=== PATIENT | male | born 1965 | race Caucasian/White ===

== ENCOUNTER 2016-09-27 09:43 | Emergency (ER) | payer OTHER ==
[2016-09-27 10:14] VITALS: BP 167/66; PULSE 78; RESP 18; TEMP 98; O2SAT 97
--- NOTE | 2016-09-27 10:56 | UCPHY ---
H & P Time Seen by Provider: 09/27/16 10:48 Patient Type: New HPI/ROS: This patient presents with a chief complaint of congestion, sore throat and productive cough which began 2 days ago. A denies fever, it ear pain or malaise. He has no chest pain no shortness of breath although has felt somewhat wheezy. REVIEW OF SYSTEMS: Constitutional: No fever, no malaise Eyes: No complaints ENT: Sore throat which is improving, nasal congestion and sinus pressure, no ear pain Respiratory: Productive cough, no shortness of breath, questionable wheezing Cardiac: No chest pain Gastrointestinal: Not addressed Genitourinary: Not addressed Musculoskeletal: Achiness initially this is resolved Skin: No rash Neurological: No headache Smoking Status: Never smoked Physical Exam: GENERAL: Well-appearing, well-nourished and in no acute distress. HEAD: Atraumatic, normocephalic. EYES: sclera anicteric, conjunctiva are normal. ENT: TMs normal, nares patent, oropharynx clear without exudates. Moist mucous membranes. NECK: Normal range of motion, supple without lymphadenopathy or JVD. LUNGS: Breath sounds clear to auscultation bilaterally and equal. No wheezes rales or rhonchi. HEART: Regular rate and rhythm EXTREMITIES: Normal range of motion, NEUROLOGICAL: Cranial nerves II through XII grossly intact. Normal speech, normal gait. PSYCH: Normal mood, normal affect. SKIN: Warm, dry, normal turgor, no visible rashes or lesions. Constitutional: Initial Vital Signs Temperature (C) 36.6 C 09/27/16 10:11 Heart Rate 78 09/27/16 10:11 Respiratory Rate 18 09/27/16 10:11 Blood Pressure 167/66 H 09/27/16 10:11 O2 Sat (%) 97 09/27/16 10:11 O2 Delivery Mode Room Air Allergies/Adverse Reactions: No Known Allergies Allergy (Unverified 09/27/16 10:09) Home Medications: Medication Instructions Recorded Alluprinol 09/27/16 Amlodipine Besylate 09/27/16 Lasix 09/27/16 Losartan Potassium 09/27/16 Losartan Potassium 09/27/16 Verapamil 09/27/16 Medical Decision Making Differential Diagnosis: I believe that this patient has a viral illness and that antibiotics are not indicated. I do not believe an x-ray is indicated. - Data Points Laboratory Results: 09/27/16 09/27/16 Unknown 10:30 Group A Strep Screen NEGATIVE (NEGATIVE) Group A Strep DNA Pending Departure - Departure Disposition: Home, Routine, Self-Care Clinical Impression: Viral syndrome Bronchitis, acute Qualifiers: Bronchitis organism: unspecified organism Qualified Code(s): J20.9 - Acute bronchitis, unspecified Condition: Good Instructions: Acute Bronchitis (ED), Upper Respiratory Infection (ED) Additional Instructions: If symptoms have not improved in 5 or 6 days or if they have not resolved in 10 days you should be re-evaluated. Causes for concern would be chest pain, fever or shortness of breath. Activity and diet as tolerated. Adult Pain & Fever Control: We recommend Acetaminophen (Tylenol) and Ibuprofen (Motrin, Advil) for pain and fever control. When fever is high or pain severe, both drugs can be used at the same time, but at different intervals. Please note the time differences. Your dose is: Acetaminophen [650]mg every 4 to 6 hours ibuprofen [600]mg every [6] hours with food OR naproxen Sodium (Aleve) [440]mg every 12 hours. Note: do not take Acetaminophen with Hydrocodone (Vicodin, Lortab) or Oxycodone (Percocet). These medications also contain Acetaminophen. No more than 3000 mg of Acetaminophen should be taken in 24 hours (for an adult) . The maximal dose of ibuprofen that it is safe in a 24-hour period is 2400 mg. You may take 400 mg every 4 hours, 600 mg every 6 hours or 800 mg every 8 hours safely. Referrals: MYRTLE SIDHU [Primary Care Provider] - As per Instructions - PQRS PQRS Measurement: Not applicable
== END 2016-09-27 11:22 | disposition home or self-care (01) ==
LOC: CED 09:43
DX: J20.9 Acute bronchitis, unspecified (principal); J06.9 Acute upper respiratory infection, unspecified
CPT/HCPCS: 87880-PO; 99203-PO; G0463-PO